=== PATIENT | female | born 1990 | race Caucasian/White ===

== ENCOUNTER 2017-11-11 05:44 | Inpatient (IN) | payer OTHER ==
[2017-11-11] MEDS ORDERED: OXYTOCIN 30 UNITS/LR 500 ML IV (06:00)
[2017-11-11] MEDS ORDERED: METHYLERGONOVINE 0.2 MG INJ IM ×2 (06:00→12:30)
[2017-11-11] MEDS ORDERED: MISOPROSTOL 200 MCG TAB PR ×2 (06:00→12:30)
[2017-11-11] MEDS ORDERED: CARBOPROST 250 MCG INJ IM ×2 (06:00→12:30)
[2017-11-11] MEDS: LACTATED RINGER'S 1,000 ML IV ×2 (06:17→20:03)
[2017-11-11 06:39] LABS: ADD MAN DIFF? NO
[2017-11-11 06:41] LABS: WHITE BLOOD COUNT 8.4 10^3/ul (4.8-10.8)
[2017-11-11 06:41] LABS: BASOPHILS % 0.5 % (0.0-2.0); EOSINOPHILS # 0.1 10^3/ul (0.0-0.5); EOSINOPHILS % 0.7 % (0.0-7.0); HEMATOCRIT 34.6 % (37.0-47.0); HEMOGLOBIN 11.8 g/dl (12.0-16.0); LYMPHOCYTES # 1.6 10^3/ul (0.8-2.9); LYMPHOCYTES % 19.2 % (15.0-51.0); MEAN CORPUSCULAR HGB CONC 34.1 g/dl (32.0-37.0); MEAN PLATELET VOLUME 11.7 fl (7.4-10.4); MONOCYTE # 0.8 10^3/ul (0.3-0.9); MONOCYTES % 9.1 % (0.0-11.0); NEUTROPHIL # 5.9 10^3/ul (1.6-7.5); NEUTROPHILS % 69.8 % (39.0-77.0); PLATELET COUNT 167 10^3/UL (140-415); RED BLOOD COUNT 3.93 10^6/ul (4.20-5.40); RED CELL DISTRIBUTION WIDTH 12.9 % (11.5-14.5)
[2017-11-11] MEDS ORDERED: morphine SULFATE/PF (10 MG/10 ML) INJ (07:12)
[2017-11-11] MEDS ORDERED: FENTAnyl 50 MCG/ML VIAL (07:13)
[2017-11-11 07:17] LABS: INR 0.92; PARTIAL THROMBOPLASTIN TIME 26.8 Sec (25.0-35.0); PROTIME 12.4 Sec (11.9-14.9)
[2017-11-11 07:24] LABS: GLUCOSE 106 mg/dl (70-220)
[2017-11-11 08:00] LABS: HEPATITIS B SURFACE ANTIGEN NEGATIVE (NEGATIVE)
[2017-11-11] MEDS ORDERED: NALOXONE (0.4 MG/ML) INJ IV (08:00)
[2017-11-11] MEDS ORDERED: ONDANSETRON 4 MG INJ IV ×2 (08:00→12:30)
[2017-11-11] MEDS ORDERED: DIPHENHYDRAMINE 50 MG INJ IV ×2 (08:00→12:30)
[2017-11-11] MEDS ORDERED: morphine 2 MG INJ IV (08:00)
[2017-11-11] MEDS ORDERED: ZOLPIDEM 5 MG TAB PO ×2 (08:00→12:30)
[2017-11-11] MEDS ORDERED: morphine 4 MG/ML VIAL IV (08:00)
[2017-11-11] MEDS ORDERED: PHENYLephrine (100 MCG/ML) 5ML SYG (08:02)
[2017-11-11] MEDS ORDERED: DEXAMETHASONE 4 MG/ML 1 ML INJ (08:04)
[2017-11-11] MEDS ORDERED: ONDANSETRON 4 MG INJ (08:05)
[2017-11-11] MEDS: OXYTOCIN 30 UNITS/LR 500 ML IV ×2 (09:35→13:59)
[2017-11-11] MEDS: CEFAZOLIN 2 GM/50 ML (PMX) 50 ML IV (09:50)
[2017-11-11] MEDS: LANOLIN 7 GM TUBE TOP (13:46)
[2017-11-11 20:53] LABS: RAPID PLASMA REAGIN NONREACTIVE (NR)
[2017-11-11] MEDS: SENNA/DOCUSATE NA (8.6MG/50MG) TAB PO (21:00)
[2017-11-12] MEDS: LACTATED RINGER'S 1,000 ML IV (01:30)
[2017-11-12] MEDS: IBUPROFEN 600 MG TAB PO ×3 (06:00→18:19)
[2017-11-12] MEDS: KETOROLAC 30 MG INJ IV (06:41)
[2017-11-12] MEDS: INFLUENZA VIRUS VACCINE 0.5 ML (DISPENSING) IM* (09:00)
[2017-11-12 09:02] LABS: ADD MAN DIFF? NO
[2017-11-12 09:07] LABS: WHITE BLOOD COUNT 8.3 10^3/ul (4.8-10.8)
[2017-11-12 09:07] LABS: BASOPHILS % 0.4 % (0.0-2.0); EOSINOPHILS # 0.1 10^3/ul (0.0-0.5); EOSINOPHILS % 0.6 % (0.0-7.0); HEMATOCRIT 30.7 % (37.0-47.0); HEMOGLOBIN 10.1 g/dl (12.0-16.0); LYMPHOCYTES # 1.1 10^3/ul (0.8-2.9); LYMPHOCYTES % 13.5 % (15.0-51.0); MEAN CORPUSCULAR HEMOGLOBIN 29.4 pg (29.0-33.0); MEAN CORPUSCULAR HGB CONC 32.9 g/dl (32.0-37.0); MEAN CORPUSCULAR VOLUME 89.5 fl (82.0-101.0); MEAN PLATELET VOLUME 11.7 fl (7.4-10.4); MONOCYTE # 0.8 10^3/ul (0.3-0.9); MONOCYTES % 9.3 % (0.0-11.0); NEUTROPHIL # 6.3 10^3/ul (1.6-7.5); NEUTROPHILS % 75.7 % (39.0-77.0); PLATELET COUNT 143 10^3/UL (140-415); RED BLOOD COUNT 3.43 10^6/ul (4.20-5.40)
[2017-11-12] MEDS: SENNA/DOCUSATE NA (8.6MG/50MG) TAB PO ×2 (09:11→21:41)
[2017-11-12] MEDS: OXYCODONE/ACETAMINOPHEN (5/325) TAB PO (15:19)
[2017-11-13] MEDS: IBUPROFEN 600 MG TAB PO ×4 (00:19→17:28)
[2017-11-13] MEDS: OXYCODONE/ACETAMINOPHEN (5/325) TAB PO ×2 (02:33→20:23)
[2017-11-13] MEDS: SENNA/DOCUSATE NA (8.6MG/50MG) TAB PO ×2 (09:49→20:23)
[2017-11-14] MEDS: IBUPROFEN 600 MG TAB PO ×3 (00:36→12:22)
[2017-11-14] MEDS: DIPHTH/TET/ACEL PERTUSS (ADULT) 0.5 ML VIAL IM* (09:10)
[2017-11-14] MEDS: SENNA/DOCUSATE NA (8.6MG/50MG) TAB PO (09:27)
[2017-11-14] MEDS: SILVER SULFADIAZINE 1% 25 GM CR TOP (13:10)
== END 2017-11-14 14:30 | disposition home or self-care (01) | DRG 766 ==
LOC: L-D 05:44 → PP1 11:43
PROVIDERS: Obstetrics & Gynecology
PROC: 10D00Z1 Extraction of Products of Conception, Low, Open Approach (ICD-10-PCS; principal; 2017-11-11)
DX: O34.211 Maternal care for low transverse scar from previous cesarean delivery (principal); O24.420 Gestational diabetes mellitus in childbirth, diet controlled; O99.824 Streptococcus B carrier state complicating childbirth; Z3A.38 38 weeks gestation of pregnancy; Z37.0 Single live birth
CPT/HCPCS: 82947; 85025; 85610; 85730; 86592; 86850; 86900; 86901; 87340; 90686; 90715; 99464